=== PATIENT | female | born 1995 | race African-American/Black ===

== ENCOUNTER 2024-09-30 15:08 | Emergency (ER) | payer OTHER ==
[~2024-09-30] VITALS: Ht 152.4 cm; Wt 56.3 kg
[2024-09-30] MEDS ORDERED: BACTRIM DS TAB1 EACH PO (16:19)
[2024-09-30] MEDS ORDERED: KETOROLAC TROMETHAMINE 60 MG/2 ML VIAL ONE (16:49)
[2024-09-30] MEDS ORDERED: TRIMETHOPRIM/SULFAMETHOXAZOLE 160-800 MG TAB ONE (16:49)
[2024-09-30] MEDS: TRIMETHOPRIM/SULFAMETHOXAZOLE 160-800 MG TAB PO ONE (17:01)
[2024-09-30 17:02] VITALS: PULSE 83; RESP 16; TEMP 97.7; O2SAT 99
[2024-09-30] MEDS: KETOROLAC TROMETHAMINE 60 MG/2 ML VIAL IM ONE (17:02)
== END 2024-09-30 17:19 | disposition home or self-care (01) ==
LOC: FSED 15:44
DX: R51.9 Headache, unspecified (principal); N39.0 Urinary tract infection, site not specified; R11.2 Nausea with vomiting, unspecified; E86.0 Dehydration; E86.1 Hypovolemia; I10 Essential (primary) hypertension; F17.210 Nicotine dependence, cigarettes, uncomplicated
CPT/HCPCS: 81003; 81025; 87086; 87186; 96372; 99283; J1885